=== PATIENT | male | born 1980 | race Caucasian/White ===

== ENCOUNTER 2018-09-11 22:40 | Inpatient (IN) | payer BC ==
[2018-09-11] MEDS ORDERED: MORPHINE 4 MG/ML SYR IV PRN (23:13)
[2018-09-11] MEDS ORDERED: ACETAMINOPHEN 500 MG TAB PO PRN (23:13)
[2018-09-11] MEDS: NA CHLORIDE 0.9% 1,000 ML IV SCH (23:59)
[2018-09-12] MEDS ORDERED: VANCOMYCIN 1.5 GM in NA CHLORIDE 0.9% 500 ML IVPB ONE (01:00)
[2018-09-12] MEDS: PIPER/TAZO/NS 3.375gm 3.375 GM/100 ML BAG IVPB SCH ×2 (01:24→05:07)
[2018-09-12] MEDS ORDERED: PIPER/TAZO/NS 3.375gm 6.750 GM/200 ML BAG ONE (01:34)
[2018-09-12] MEDS ORDERED: VANCOMYCIN 1 GM/VIAL ONE (01:47)
[2018-09-12] MEDS ORDERED: VANCOMYCIN 500 MG/VIAL ONE (01:48)
[2018-09-12] MEDS ORDERED: NA CHLORIDE 0.9% 500 ML ONE (01:53)
[2018-09-12 05:03] LABS: Absolute Lymphocytes (CBC) 1.5 K/uL (0.7-4.9); Basophils % 0.2 % (0-1.3); Eosinophils % 1.1 % (0-4.4); Hematocrit 44.8 % (39.6-49.0); Lymphocytes % 11.4 % (15.3-44.8); MPV 8.8 fL (7.6-11.3); Monocytes % 7.7 % (3.3-12.3); RBC Red Blood Cell Count 4.86 M/uL (4.33-5.43)
[2018-09-12 05:23] LABS: Potassium 4.1 mmol/L (3.5-5.1)
[2018-09-12 06:13] LABS: Urine Appearance CLEAR; Urine Bilirubin NEGATIVE (NEG); Urine Blood NEGATIVE (NEG); Urine Color YELLOW; Urine Glucose NEGATIVE (NEG); Urine Protein NEGATIVE (NEG); Urine Specific Gravity >=1.030 (1.005-1.030); Urine Urobilinogen 0.2 mg/dL (0.2-1.0)
[2018-09-12 06:15] LABS: Urine Microscopic Reflex ORDER UMIC
--- NOTE | 2018-09-12 06:55 | P.HP ---
Date of Service: 09/11/18 [id number]
[2018-09-12 07:11] LABS: Urine Bacteria <20 /HPF (NONE SEEN); Urine Culture Reflex Order REFLEXED; Urine RBC <5 /HPF (NONE SEEN)
--- NOTE | 2018-09-12 07:40 | HP ---
Date of Admission: 09/11/2018 Reason For Admission: Cellulitis of the right upper extremity. History Of Present Illness: This is a 37-year-old gentleman, who came to the hospital with celluliti s of the right upper extremity. He states that his arm was red and inflamed. He has a tattoo so he was not able to see the degree of the cellulitis. 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 A couple days after that, he started noticing some pain in that arm. At cornelius t time, he decided to come into the hospital for further evaluation. He initially had gone to the [facility] ER and it was there that they noticed that his inflammation extended from his shoulder to his elb ow. They did a CAT scan which showed soft tissue cellulitis with no joint involvement. At that time , decision was made to admit the patient to our hospital from [facility]. The patient has pain in his arm but otherwise no complaints. His normal primary care provider is Dr. Maria. We are covering for Dr. Maria since he is out of town. The patient will be treated with IV antibiotics and pain medication. Review of Systems: A 10-point review of systems is otherwise unremarkable. Past Medical History: The patient denies any medical issues. Past Surgical History: He has had a prior appendectomy. Family History: Noncontributory. Social History: He denies smoking or drinking or doing any drugs. Home Medications: He does not take any home medications. Allergies: HE HAS NO KNOWN DRUG ALLERGIES. Physical Examination: Vital Signs: His initial vitals revealed a temp of 100.2, blood pressure was 120/60, respirations 18 , heart rate 65, saturating 100%. Pain scale was 6/10. General: The patient is lying in bed, comfortable, no distress. He is awake, alert, and oriented to person, place, time. HEENT: Normocephalic, atraumatic. Pupils are equal, reactive to light. Extraocular muscles are int act. There is no JVP. No bruits. Oropharynx pink, moist. No lymphadenopathy. No thyromegaly. TM s normal. Cardiovascular: Regular rate and rhythm. No murmur. Lungs: Clear bilaterally. Abdomen: Soft, nontender, and nondistended. Bowel sounds positive. Extremities: No clubbing, no cyanosis, no edema. Neurologic: Cranial nerves 2 through 12 intact. Motor is 5/5. Sensation intact to light touch. Skin: The patient has some redness and warmth from his right shoulder to above his right elbow. The re is a significant degree of tenderness. The patient has tattoos so we cannot really determine the extent. Lymph Node: The patient is with no lymphadenopathy. Assessment And Plan: The patient is with cellulitis of the right upper extremity. Plan at this time is to continue with IV hydration, IV antibiotics, and pain control. We will reasse ss the level of inflammation in the morning. We will repeat his labs including his white count and h is electrolytes. At this time, the patient will be admitted for inpatient stay as the cellulitis inv olved his shoulder through to his upper elbow. If the cellulitis improves then he may be able to go home in the next 48-72 hours. JOSE CARLOS Voice ID: [id number]
[2018-09-12] MEDS: NA CHLORIDE 0.9% 1,000 ML IV SCH (09:10)
[2018-09-12] MEDS ORDERED: PIPER/TAZO/NS 3.375gm 3.375 GM/100 ML BAG IVPB SCH (11:00)
--- NOTE | 2018-09-12 11:44 | P.PN ---
Subjective Date of Service: 09/12/18 Chief Complaint: Right arm cellulitis Subjective: Improving (Patient is improving he is doing much better admitted with fever chills and right arm pain and swelling [facility]. He is currently feeling fine any is refusing to stay in the hospital) Review of Systems 10-point ROS is otherwise unremarkable Physical Examination - Vital Signs Temperature: 98.5 F Blood Pressure: 124/60 Pulse: 90 Respirations: 17 Pulse Ox (%): 98 - Physical Exam General: Alert, In no apparent distress, Oriented x3 Respiratory: Clear to auscultation bilaterally Cardiovascular: No edema, Regular rate/rhythm Musculoskeletal: Other (There is no tenderness redness of swelling in the right arm) - Studies Laboratory Data (last 24 hrs) 09/12/18 04:46: Sodium 139, Potassium 4.1, BUN 13, Creatinine 1.18, Glucose 90 09/12/18 04:46: WBC 12.7 H, Hgb 15.1, Hct 44.8, Plt Count 266 Assessment & Plan - Problems (Diagnosis) (1) Cellulitis Current Visit: Yes Status: Acute Plan: Patient is 37 years of age admitted with her acute onset of right arm pain possible cellulitis he is refusing to stay in the hospital blood cultures ordered hemodynamically stable oxygenation satisfactory white count is mildly elevated patient to discharge himself from the hospital against medical advice I have also called in some levofloxacin Qualifiers: Site of cellulitis of extremity: upper extremity
[2018-09-12] MEDS ORDERED: VANCOMYCIN 1.5 GM in NA CHLORIDE 0.9% 500 ML IVPB SCH (13:00)
[2018-09-13] MEDS ORDERED: levoFLOXacin 750 MG TAB PO SCH (09:00)
--- NOTE | 2018-09-13 11:19 | P.DS ---
Admission Date: 09/11/18 (Hospitalist) Discharge Date: 09/13/18 Disposition: AMA-LEFT AGAINST MEDICAL ADVIC Reason for Admission: Right arm cellulitis - Problems (1) Cellulitis Status: Acute Qualifiers: Site of cellulitis of extremity: upper extremity Brief History of Present Illness: Patient admitted with acute onset of swelling in his right arm was transferred from [facility] Hospital Course: Patient's symptoms had improved right down swelling had decreased according to the patient wanted to leave against medical advice refuse any blood draws or cultures vital signs satisfactory Vital Signs/Physical Exam: Temp Pulse Resp BP Pulse Ox 98.2 F 84 18 115/62 98 09/12/18 12:00 09/12/18 12:00 09/12/18 12:00 09/12/18 12:00 09/12/18 12:00 Laboratory Data at Discharge: WBC 12.7 K/uL (4.3-10.9) H 09/12/18 04:46 Hgb 15.1 g/dL (13.6-17.9) 09/12/18 04:46 Hct 44.8 % (39.6-49.0) 09/12/18 04:46 Plt Count 266 K/uL (152-406) 09/12/18 04:46 Sodium 139 mmol/L (136-145) 09/12/18 04:46 Potassium 4.1 mmol/L (3.5-5.1) 09/12/18 04:46 BUN 13 mg/dL (7-18) 09/12/18 04:46 Creatinine 1.18 mg/dL (0.55-1.3) 09/12/18 04:46 Glucose 90 mg/dL (74-106) 09/12/18 04:46 Home Medications: levoFLOXacin [Levaquin] 750 mg PO DAILY #7 tab 09/12/18 New Medications: levoFLOXacin [Levaquin] 750 mg PO DAILY #7 tab
== END 2018-09-12 12:27 | disposition left against medical advice (07) | DRG 603 ==
LOC: 2ND 22:40
PROVIDERS: ADMIT Hospitalist; ATTEND Hospitalist
DX: L03.113 Cellulitis of right upper limb (principal); Z53.21 Procedure and treatment not carried out due to patient leaving prior to being seen by health care provider
CPT/HCPCS: 36415; 80048; 81003; 81015; 85025; 87040; 87086; 87088; J2543; J7030